=== PATIENT | female | born 1965 | race Caucasian/White ===

== ENCOUNTER 2017-04-18 21:09 | Emergency (ER) | payer OTHER ==
[~2017-04-18] VITALS: Ht 175.3 cm; Wt 99.6 kg
[~2017-04-18 21:09] MED LIST: ALEVE220 MG PO; ALPRAZOLAM0.25 M2 PO; AMBIEN10 MG PO; ASPIR-LOW81 MG PO; DIFLUCAN150 MG PO; HYDROXYZINE PAM50 MG PO; IBUPROFEN800 MG PO; KLONOPIN0.5 M1 PO; LEVOTHYROXINE75 MCG PO; LOPRESSOR50 MG PO; PRILOSEC20 MG PO; PROZAC20 MG PO; RISPERIDONE1 MG PO; SYNTHROID125 MCG PO; TYLENOL EXTRA500 MG PO; VENLAFAXINE HCL75 M3 PO
[2017-04-18 21:55] LABS: HEMATOCRIT 40.4 % (36.0-46.0); MCH 28.9 PG (29.0-34.0); MCHC 32.7 G/DL (30.0-36.0); MCV 88.6 FL (83-99); MEAN PLAT.VOLUME 10.4 uM^3 (9.5-12.4); PLATELET COUNT 262 K/uL (156-360); RBC DIS.WIDTH-CV 13.4 % (11.8-14.6); RBC DIS.WIDTH-SD 43.7 % (39-53); RED BLOOD COUNT 4.56 M/uL (3.80-5.20); WHITE BLOOD COUNT 11.1 K/uL (4.1-10.2)
[2017-04-18 22:05] LABS: CHLORIDE 105 mEq/L (99-109); POTASSIUM 3.3 mEq/L (3.7-5.4); SODIUM 136 mEq/L (136-147)
[2017-04-18 22:07] LABS: GLUCOSE 129 mg/dL (70-99)
[2017-04-18 22:08] LABS: ANION GAP 9 MEQ/L (2-14)
[2017-04-18 22:10] LABS: GFR ESTIMATE (CALCULATED) > 59 mL/min/
[2017-04-18 22:11] LABS: UREA NITROGEN (BUN) 11 mg/dL (9-23)
[2017-04-18 22:14] LABS: TROP-I INTERPRETATION NEGATIVE; TROPONIN-I < 0.01 ng/mL (0.0-0.30)
[2017-04-19] MEDS ORDERED: NORCO 5/3251 TABLET PO (03:54)
[2017-04-19 04:02] VITALS: BP 133/79
== END 2017-04-19 04:02 | disposition home or self-care (01) ==
LOC: EXP 21:09 → EME 21:09 → EXP 04-19 04:02
DX: M25.512 Pain in left shoulder (principal); R07.89 Other chest pain; F32.9 Major depressive disorder, single episode, unspecified; F41.9 Anxiety disorder, unspecified; Z86.711 Personal history of pulmonary embolism; Z88.8 Allergy status to other drugs, medicaments and biological substances
CPT/HCPCS: 71020; 73030; 80048; 84484; 85027; 93005; 99281; 99284; J1170